=== PATIENT | male | born 1975 | race Caucasian/White ===

== ENCOUNTER 2018-10-23 03:56 | Emergency (ER) | payer SELFPAY ==
[2018-10-23 04:07] VITALS: BP 149/94; PULSE 110; TEMP 98.3; BMI 24.4
--- NOTE | 2018-10-23 04:08 | PDOC ---
History of Present Illness <Aaliyah Mathews - Last Filed: 10/23/18 06:16> - General History Source: Patient Exam Limitations: No Limitations - History of Present Illness Initial Comments: 10/23/18 04:13 43 year old male with PMH seizure disorder presented to ED for seizure. Pt stated he has been out of his Dilatin 200 mg BID for two days because he is moving and lost the medication. Pt stated he was getting out of his car today and suddenly had a seizure, falling to the ground and hitting his head. He denied vomiting. Seizure was witnessed, lasting 1 minute, followed by post- ictal period. Allergies: NKDA <RosaLauren - Last Filed: 10/23/18 06:26> - General Chief Complaint: Seizure Stated Complaint: SEIZURE Time Seen by Provider: 10/23/18 04:08 Past History <Aaliyah Mathews - Last Filed: 10/23/18 06:16> - Past Medical History COPD: No Seizures: Yes - Suicide/Smoking/Psychosocial Hx Smoking History: Never smoked Hx Alcohol Use: No Drug/Substance Use Hx: No <RosaLauren - Last Filed: 10/23/18 06:26> - Past Medical History Allergies/Adverse Reactions: Allergies Allergy/AdvReac Type Severity Reaction Status Date / Time No Known Allergies Allergy Verified 10/23/18 04:06 Home Medications: Ambulatory Orders Phenytoin Na Extended [Dilantin -] 200 mg PO BID #28 capsule 10/23/18 Phenytoin Na Extended [Dilantin -] 400 mg PO DAILY 10/23/18 Review of Systems - Review of Systems Able to Perform ROS?: Yes Comments:: 10/23/18 04:16 General: denied fever, chills, night sweats, generalized weakness. HEENT: denied sore throat, rhinorrhea, ear pain. Heart: denied chest pain, palpitations, syncope, diaphoresis. Respiratory: denied shortness of breath, cough, sputum production, hemoptysis. Abdomen: denied abdominal pain, nausea, vomiting, diarrhea, constipation, blood in stool. : denied dysuria, increased urinary frequency, hematuria, urinary incontinence , flank pain. Back: denied back pain. Musculoskeletal: denied joint pain, muscle pain, joint swelling. Neurological: admitted to seizure, headache. denied dizziness, numbness, tingling, weakness. Skin: denied rash, laceration, abrasion. <Benji Leea - Last Filed: 10/23/18 06:26> *Physical Exam - Vital Signs Last Vital Signs Temp Pulse Resp BP Pulse Ox 98.3 F 110 H 18 149/94 97 10/23/18 04:05 10/23/18 04:05 10/23/18 04:05 10/23/18 04:05 10/23/18 04:05 <Aaliyah Mathews - Last Filed: 10/23/18 06:16> - Vital Signs Last Vital Signs Temp Pulse Resp BP Pulse Ox 98.3 F 110 H 18 149/94 97 10/23/18 04:05 10/23/18 04:05 10/23/18 04:05 10/23/18 04:05 10/23/18 04:05 - Physical Exam Comments: 10/23/18 04:16 Constitutional: Well-nourished, Well-developed, appearing stated age. HEENT: head is normocephalic, atraumatic. EOMI. PERRLA. Neck: supple. Full ROM. Heart: regular rhythm. no murmurs, rubs or gallops. Lungs: clear to auscultation bilaterally. no crackles, rhonchi or wheezing. no stridor. Abdomen: soft, nontender. normal bowel sounds. no rebound, guarding, masses. Extremities: Peripheral pulses intact. No lower extremity edema. Neurological: Alert. Oriented x3. CN2-12 intact. 5/5 strength all extremities. Full sensation all extremities and bilateral face. Psych: awake, alert, oriented x3. Follows commands. Answers questions appropriately. <Jesus Leeyla - Last Filed: 10/23/18 06:26> Moderate Sedation - Procedure Monitoring Vital Signs: Procedure Monitoring Vital Signs Temperature 98.3 F 10/23/18 04:05 Pulse Rate 110 H 10/23/18 04:05 Respiratory Rate 18 10/23/18 04:05 Blood Pressure 149/94 10/23/18 04:05 O2 Sat by Pulse Oximetry (%) 97 10/23/18 04:05 <Aaliyah Mathews - Last Filed: 10/23/18 06:16> - Procedure Monitoring Vital Signs: Procedure Monitoring Vital Signs Temperature 98.3 F 10/23/18 04:05 Pulse Rate 110 H 10/23/18 04:05 Respiratory Rate 18 10/23/18 04:05 Blood Pressure 149/94 10/23/18 04:05 O2 Sat by Pulse Oximetry (%) 97 10/23/18 04:05 <Lauren Lee - Last Filed: 10/23/18 06:26> ED Treatment Course - LABORATORY CBC & Chemistry Diagram: 10/23/18 04:24 10/23/18 04:24 - ADDITIONAL ORDERS Additional order review: Laboratory Results 10/23/18 10/23/18 04:24 04:24 Sodium 137 Potassium 3.7 Chloride 104 Carbon Dioxide 28 Anion Gap 4 L BUN 14 Creatinine 1.1 Creat Clearance w eGFR > 60 Random Glucose 114 H Calcium 8.7 Total Bilirubin 0.5 AST 28 ALT 29 Alkaline Phosphatase 95 Total Protein 7.6 Albumin 4.2 Phenytoin 0.5 L 10/23/18 04:24 RBC 4.48 MCV 95.3 MCHC 35.4 RDW 12.9 MPV 7.8 Neutrophils % 84.2 H Lymphocytes % 9.1 Monocytes % 6.3 Eosinophils % 0.1 Basophils % 0.3 - Medications Given in the ED: ED Medications Discontinued Medications Generic Name Dose Route Start Last Admin Trade Name Freq PRN Reason Stop Dose Admin Sodium Chloride 1,000 mls @ 1,000 mls/hr 10/23/18 04:19 10/23/18 04:47 Normal Saline - IV 10/23/18 05:18 1,000 mls/hr ASDIR STA Administration Fosphenytoin Sodium 1,000 mg/ 70 mls @ 420 mls/hr 10/23/18 05:30 10/23/18 05: 41 Sodium Chloride IVPB 10/23/18 05:39 420 mls/hr ONCE ONE Administration Ibuprofen 800 mg 10/23/18 04:13 10/23/18 04:47 Motrin - PO 10/23/18 04:14 800 mg ONCE ONE Administration Phenytoin Sodium 200 mg 10/23/18 04:15 10/23/18 04:47 Dilantin - PO 10/23/18 04:16 200 mg ONCE ONE Administration <Aaliyah Mathews - Last Filed: 10/23/18 06:16> - LABORATORY CBC & Chemistry Diagram: 10/23/18 04:24 10/23/18 04:24 <Lauren Lee - Last Filed: 10/23/18 06:26> Medical Decision Making - Medical Decision Making 10/23/18 04:17 43 year old male with PMH seizure disorder presented to ED for seizure after medication noncompliance for 2 days. Initial Vital Signs Temp Pulse Resp BP Pulse Ox 98.3 F 110 H 18 149/94 97 10/23/18 04:05 10/23/18 04:05 10/23/18 04:05 10/23/18 04:05 10/23/18 04:05 Afebrile. Tachycardic. No tachypnea. Mild hypertension. No hypoxia on room air. Labs ordered: CBC, CMP, dilantin level Imaging ordered: CT head Medications ordered: Dilantin 200 mg PO, ibuprofen 800 mg PO, normal saline 1000 cc bolus 10/23/18 04:48 CT head report: No hemorrhage, mass or acute infarct. CBC WBC 13.2 K/mm3 (4.0-10.0) H 10/23/18 04:24 RBC 4.48 M/mm3 (4.00-5.60) 10/23/18 04:24 Hgb 15.1 GM/dL (11.7-16.9) 10/23/18 04:24 Hct 42.7 % (35.4-49) 10/23/18 04:24 MCV 95.3 fl (80-96) 10/23/18 04:24 MCH 33.7 pg (25.7-33.7) 10/23/18 04:24 MCHC 35.4 g/dl (32.0-35.9) 10/23/18 04:24 RDW 12.9 % (11.9-15.9) 10/23/18 04:24 Plt Count 296 K/MM3 (134-434) 10/23/18 04:24 MPV 7.8 fl (7.5-11.1) 10/23/18 04:24 Absolute Neuts (auto) 11.1 K/mm3 (1.5-8.0) H 10/23/18 04:24 Neutrophils % 84.2 % (42.8-82.8) H 10/23/18 04:24 Lymphocytes % 9.1 % (8-40) 10/23/18 04:24 Monocytes % 6.3 % (3.8-10.2) 10/23/18 04:24 Eosinophils % 0.1 % (0-4.5) 10/23/18 04:24 Basophils % 0.3 % (0-2.0) 10/23/18 04:24 Nucleated RBC % 0 % (0-0) 10/23/18 04:24 Mild leukocytosis. No anemia. Left shift. Consistent with seizure. 10/23/18 05:06 CMP Sodium 137 mmol/L (136-145) 10/23/18 04:24 Potassium 3.7 mmol/L (3.5-5.1) 10/23/18 04:24 Chloride 104 mmol/L (98-107) 10/23/18 04:24 Carbon Dioxide 28 mmol/L (21-32) 10/23/18 04:24 Anion Gap 4 MMOL/L (8-16) L 10/23/18 04:24 BUN 14 mg/dL (7-18) 10/23/18 04:24 Creatinine 1.1 mg/dL (0.55-1.3) 10/23/18 04:24 Creat Clearance w eGFR > 60 (>60) 10/23/18 04:24 Random Glucose 114 mg/dL (74-106) H 10/23/18 04:24 Calcium 8.7 mg/dL (8.5-10.1) 10/23/18 04:24 Total Bilirubin 0.5 mg/dL (0.2-1) 10/23/18 04:24 AST 28 U/L (15-37) 10/23/18 04:24 ALT 29 U/L (13-61) 10/23/18 04:24 Alkaline Phosphatase 95 U/L (45-117) 10/23/18 04:24 Total Protein 7.6 g/dl (6.4-8.2) 10/23/18 04:24 Albumin 4.2 g/dl (3.4-5.0) 10/23/18 04:24 No electrolyte abnormalities. No KAILA. No transaminitis. Dilantin level 0.5. Medications ordered: Fosphenytoin 1g IV 10/23/18 06:24 No seizure in ED. Pt reported improvement of symptoms. Pt discharged. <Lauren Lee - Last Filed: 10/23/18 06:26> *DC/Admit/Observation/Transfer <Aaliyah Mathews - Last Filed: 10/23/18 06:16> - Discharge Dispostion Decision to Admit order: No <Lauren Lee - Last Filed: 10/23/18 06:26> Diagnosis at time of Disposition: Seizure, History of fall - Discharge Dispostion Disposition: HOME Condition at time of disposition: Stable - Prescriptions Prescriptions: Phenytoin Na Extended [Dilantin -] 200 mg PO BID #28 capsule - Patient Instructions Printed Discharge Instructions: DI for Seizure Disorder -- Adult Additional Instructions: You were seen today for a seizure. Take your seizure medication as prescribed. I have sent a prescription to your pharmacy for 2 weeks worth of Dilantin. Take as advised on label. Follow up with your primary care doctor in 1-2 days, ask for a refill of your prescription. If you ever run out again, CALL YOUR PRIMARY CARE DOCTOR. Take Tylenol and/or Ibuprofen for your pain. Drink lots of clear fluids, like water, to stay hydrated. Sleep at least 8 hours every night. Return to the Emergency Department for seizure, increasing pain, weakness, numbness, tingling, chest pain, shortness of breath, vomiting, or any other new , worsening or concerning symptoms. - Post Discharge Activity Forms/Work/School Notes: Back to Work
--- NOTE | 2018-10-23 04:12 | PDOC ---
Attending Attestation - Resident Resident Name: Lauren Lee - ED Attending Attestation I have performed the following: I have examined & evaluated the patient, The case was reviewed & discussed with the resident, I agree w/resident's findings & plan - HPI HPI: 10/23/18 04:45 Pt had a witnessed seizure getting out of his car; she hit his head. He has not taken his dilantin as prescribed. - Physicial Exam PE: 10/23/18 04:45 Agree with resident exam - Medical Decision Making 10/23/18 04:45 Pt will be hydrated and he will get CT head and labs and he will be loaded with dilantin. 10/23/18 04:49 Patient Name: FACUNDO MCKENNA THIS IS A PRELIMINARY REPORT FROM [facility] P[facility] DATE OF SERVICE: 2018-10-23 04:14:57 IMAGES: 179 EXAM: CT HEAD WITHOUT CONTRAST No acute brain parenchymal abnormality. No hemorrhage, mass or acute territorial infarct. No skull fracture. Clear visualized paranasal sinuses. Visualized mastoid air cells clear 10/23/18 05:25 Dilantin level is 0.5. Pt will be loaded with 1g phosphenytoin 10/23/18 06:33 We gave pt a 2 week supply of dilantin 200mg BID; he will follow with neurology.
[2018-10-23] MEDS ORDERED: IBUPROFEN 400 MG TABLET (FP) PO ONE ×2 (04:13→04:38)
[2018-10-23] MEDS ORDERED: PHENYTOIN NA EXTENDED 100 MG CAPSULE (FP) PO ONE (04:15)
[2018-10-23] MEDS ORDERED: SODIUM CHLORIDE 1,000 ML IV STA (04:19)
[2018-10-23 04:34] LABS: BASO % 0.3 % (0-2.0); EOS % 0.1 % (0-4.5); HEMATOCRIT 42.7 % (35.4-49); HEMOGLOBIN 15.1 GM/dL (11.7-16.9); LYMPH % 9.1 % (8-40); MCH 33.7 pg (25.7-33.7); MCHC 35.4 g/dl (32.0-35.9); MEAN CELL VOLUME 95.3 fl (80-96); MEAN PLT VOLUME 7.8 fl (7.5-11.1); MONO % 6.3 % (3.8-10.2); NEUT % 84.2 % (42.8-82.8); PLATELET COUNT 296 K/MM3 (134-434); RBC 4.48 M/mm3 (4.00-5.60); RDW 12.9 % (11.9-15.9); WHITE BLOOD COUNT 13.2 K/mm3 (4.0-10.0)
[2018-10-23] MEDS ORDERED: PHENYTOIN NA EXTENDED 100 MG CAPSULE (FP) ONE (04:37)
[2018-10-23 05:04] LABS: ALBUMIN 4.2 g/dl (3.4-5.0); ALK PHOS 95 U/L (45-117); ANION GAP 4 MMOL/L (8-16); BILIRUBIN,TOTAL 0.5 mg/dL (0.2-1); BLOOD UREA NITROGEN 14 mg/dL (7-18); CALCIUM 8.7 mg/dL (8.5-10.1); CHLORIDE 104 mmol/L (98-107); CO2 28 mmol/L (21-32); CREATININE 1.1 mg/dL (0.55-1.3); GLUCOSE,RANDOM 114 mg/dL (74-106); POTASSIUM 3.7 mmol/L (3.5-5.1); SGOT/AST 28 U/L (15-37); SGPT/ALT 29 U/L (13-61); SODIUM 137 mmol/L (136-145); TOT PROT 7.6 g/dl (6.4-8.2)
[2018-10-23] MEDS ORDERED: FOSPHENYTOIN SODIUM 1,000 MG in SODIUM CHLORIDE 100 ML IVPB ONE (05:24)
[2018-10-23] MEDS ORDERED: FOSPHENYTOIN SODIUM IVPB ONE (05:30)
[2018-10-23] MEDS ORDERED: SODIUM CHLORIDE IVPB ONE (05:30)
== END 2018-10-23 06:34 | disposition home or self-care (01) ==
LOC: JER 03:56
PROC: 3E0337Z Introduction of Electrolytic and Water Balance Substance into Peripheral Vein, Percutaneous Approach (ICD-10-PCS; principal; 2018-10-23)
PROC: 3E033GC Introduction of Other Therapeutic Substance into Peripheral Vein, Percutaneous Approach (ICD-10-PCS; 2018-10-23)
DX: R56.9 Unspecified convulsions (principal); S09.8XXA Other specified injuries of head, initial encounter; W18.39XA Other fall on same level, initial encounter; Y93.89 Activity, other specified; Y92.89 Other specified places as the place of occurrence of the external cause; Y99.8 Other external cause status
CPT/HCPCS: 36415; 70450-TC; 80053; 80185; 85025; 99282-25; J7030